=== PATIENT | female | born 1950 | race Hispanic/Latino ===

== ENCOUNTER 2017-10-29 17:15 | Inpatient (IN) | payer MEDICARE ==
[~2017-10-29] VITALS: Ht 152.4 cm; Wt 31.9 kg
[~2017-10-29 17:15] MED LIST: ACET500C50 PEG; ALBU0.63 IH; APIX2.5T PEG; BUDE0.252 IH; CALC0.253 PEG; FAMO20TA8 PEG; FOLI1TAB61 PEG; FURO-152 PEG; LEVE250T PEG; MIDO5TAB PEG; PHEN125O3 PEG; PRED10TA3 PEG; QUET25TA PEG
[2017-10-29 17:56] LABS: ABG BASE EXCESS 4.3 mmol/L (-2.0-3.0); ABG HCO3 32.7 mmol/L (21.0-28.0); ABG OXYGEN SATURATION 90.4 % (95.0-99.0); ABG PCO2 65 mmHg (32-45)
[2017-10-29 18:12] LABS: BASOPHILS % (AUTO) 0.9 % (0.0-5.0); EOSINOPHILS % (AUTO) 1.8 % (0.0-8.0); HEMATOCRIT 35.6 % (36-48); LYMPHOCYTES % (AUTO) 19.2 % (21.0-51.0); MEAN CORPUSCULAR HEMOGLOBIN 31.9 pg (27.0-33.0); MEAN CORPUSCULAR HGB CONC 33.5 g/dL (32.0-36.0); MEAN CORPUSCULAR VOLUME 95.3 fL (79-99); MONOCYTES % (AUTO) 9.7 % (3.0-13.0); NEUTROPHILS % (AUTO) 68.4 % (40.0-77.0); NUCLEATED RED BLOOD CELLS 0.1 % (0.0-0.19); PLATELET COUNT (AUTO) 340 K/uL (130-400); RED BLOOD CELL COUNT(AUTO) 3.74 MIL/uL (4.00-5.50); RED CELL DISTRIBUTION WIDTH 13.7 % (11.0-15.5); WHITE BLOOD COUNT (AUTO) 7.8 K/uL (4.8-10.8)
[2017-10-29 18:17] LABS: APPEARANCE,URINE Turbid (CLEAR); BILIRUBIN,URINE Negative (NEGATIVE); COLOR,URINE Yellow (YELLOW); GLUCOSE, URINE (UA) Negative (NEGATIVE); KETONES,URINE Negative (NEGATIVE); LEUKOCYTE ESTERASE ,URINE Moderate (NEGATIVE); NITRATE,URINE Negative (NEGATIVE); OCCULT BLOOD,URINE Negative (NEGATIVE); PROTEIN,URINE Trace (NEGATIVE); UROBILINOGEN,URINE 0.2 mg/dL (0.2-1.0)
[2017-10-29 18:30] LABS: CREATININE 0.4 mg/dL (0.5-1.5); POTASSIUM 4.6 mmol/L (3.5-5.1)
[2017-10-29 18:32] LABS: AMORPHOUS SEDIMENT,UR Moderate /LPF (None Seen); BACTERIA,URINE Few /HPF (None Seen); RBC,URINE None Seen /HPF (0-1); SQUAMOUS EPITHELIAL CELL,UR 0-2 /LPF (0-2)
[2017-10-29 18:44] LABS: ALBUMIN 3.3 g/dL (3.5-5.0); BILIRUBIN,TOTAL 0.2 mg/dL (0.2-1.0); CREATINE KINASE MB 0.9 ng/mL (0.5-3.6); TOTAL PROTEIN, SERUM 8.5 g/dL (6.0-8.3)
[2017-10-29 18:46] LABS: INR 0.94 (0.85-1.15); PARTIAL THROMBOPLASTIN TIME 25.8 SEC (26.3-35.5); PROTHROMBIN TIME 9.9 SEC (9.6-11.6)
[2017-10-29 18:48] LABS: B-TYPE NATRIURETIC PEPTIDE 133 pg/mL (0-100)
[2017-10-29] MEDS ORDERED: LEVOFLOXACIN 500 MG/D5W 100 ML 100 ML ONE (19:45)
[2017-10-29] MEDS ORDERED: CEFTRIAXONE SODIUM 1 GM ONE (19:45)
[2017-10-29] MEDS ORDERED: OSELTAMIVIR PHOSPHATE 75 MG PO ONE ×2 (20:30)
[2017-10-29 22:18] VITALS: BP 114/75
[2017-10-29 23:00] VITALS: BP 81/55
[2017-10-29] MEDS ORDERED: ACETAMINOPHEN ELIXIR 650 MG/20.3 ML UDCUP GT PRN (23:00)
[2017-10-29] MEDS ORDERED: ONDANSETRON HCL 4 MG/2 ML VIAL IV PRN (23:30)
[2017-10-29] MEDS ORDERED: PERMETHRIN CREAM 5% 60GM TUBE TP SCH (23:30)
[2017-10-29] MEDS ORDERED: NOREPINEPHRINE 4MG/NS 250ML 250 ML IV SCH (23:30)
[2017-10-29] MEDS ORDERED: ACETAMINOPHEN-CODEINE 300/30MG TAB GT PRN (23:30)
[2017-10-29] MEDS ORDERED: NOREPINEPHRINE BITARTRATE 1 MG/1 ML ML IV ONE (23:35)
[2017-10-29] MEDS ORDERED: SODIUM CHLORIDE 0.9% 250 ML IV ONE (23:36)
[2017-10-30] VITALS (15 sets, daily range): BP systolic 86–127; BP diastolic 34–81
[2017-10-30 04:10] LABS: EOSINOPHILS % (AUTO) 4.7 % (0.0-8.0); HEMATOCRIT 34.1 % (36-48); LYMPHOCYTES % (AUTO) 22.7 % (21.0-51.0); MEAN CORPUSCULAR HEMOGLOBIN 32.9 pg (27.0-33.0); MEAN CORPUSCULAR HGB CONC 34.2 g/dL (32.0-36.0); MEAN CORPUSCULAR VOLUME 96.3 fL (79-99); MONOCYTES % (AUTO) 15.1 % (3.0-13.0); NEUTROPHILS % (AUTO) 56.5 % (40.0-77.0); NUCLEATED RED BLOOD CELLS 0.1 % (0.0-0.19); PLATELET COUNT (AUTO) 275 K/uL (130-400); RED BLOOD CELL COUNT(AUTO) 3.54 MIL/uL (4.00-5.50); RED CELL DISTRIBUTION WIDTH 13.8 % (11.0-15.5); WHITE BLOOD COUNT (AUTO) 3.5 K/uL (4.8-10.8)
[2017-10-30 04:18] LABS: CREATININE 0.5 mg/dL (0.5-1.5); POTASSIUM 3.8 mmol/L (3.5-5.1)
[2017-10-30 05:53] LABS: ABG BASE EXCESS 2.6 mmol/L (-2.0-3.0); ABG HCO3 30.2 mmol/L (21.0-28.0); ABG OXYGEN SATURATION 90.5 % (95.0-99.0); ABG PCO2 59 mmHg (32-45)
[2017-10-30] MEDS ORDERED: PERMETHRIN CREAM 5% 60GM TUBE TP SCH (08:00)
[2017-10-30] MEDS ORDERED: PANTOPRAZOLE 40 MG/VIAL IVP SCH (09:00)
[2017-10-30] MEDS: LEVOFLOXACIN 500 MG/D5W 100 ML 100 ML IV SCH (09:08)
[2017-10-30] MEDS: CEFTRIAXONE SODIUM 1 GM IVP SCH (09:08)
[2017-10-30] MEDS: ENOXAPARIN SODIUM 30 MG/0.3 ML SQ SCH (09:09)
[2017-10-30] MEDS: OSELTAMIVIR PHOSPHATE 75 MG CAP GT SCH ×2 (09:09→22:26)
[2017-10-30] MEDS ORDERED: FAMOTIDINE/PF 20 MG/2 ML VIAL IV SCH (10:15)
[2017-10-31 03:39] VITALS: BP 112/77
[2017-10-31 07:44] VITALS: BP 87/65
[2017-10-31] MEDS: LEVOFLOXACIN 500 MG/D5W 100 ML 100 ML IV SCH (09:50)
[2017-10-31] MEDS: OSELTAMIVIR PHOSPHATE 75 MG CAP GT SCH ×2 (09:50→20:17)
[2017-10-31] MEDS: FAMOTIDINE/PF 20 MG/2 ML VIAL IV SCH (09:50)
[2017-10-31] MEDS: ENOXAPARIN SODIUM 30 MG/0.3 ML SQ SCH (09:51)
[2017-10-31] MEDS: CEFTRIAXONE SODIUM 1 GM IVP SCH (09:51)
[2017-10-31 11:05] VITALS: BP 108/55
[2017-10-31 16:30] VITALS: BP 111/67
[2017-10-31 19:45] VITALS: BP 95/57
[2017-10-31 23:40] VITALS: BP 112/70
[2017-11-01 03:43] VITALS: BP 122/74
[2017-11-01 07:40] VITALS: BP 101/55
[2017-11-01] MEDS: LEVOFLOXACIN 500 MG/D5W 100 ML 100 ML IV SCH (08:37)
[2017-11-01] MEDS: OSELTAMIVIR PHOSPHATE 75 MG CAP GT SCH ×2 (08:37→20:12)
[2017-11-01] MEDS: FAMOTIDINE/PF 20 MG/2 ML VIAL IV SCH (08:40)
[2017-11-01] MEDS: CEFTRIAXONE SODIUM 1 GM IVP SCH (08:40)
[2017-11-01] MEDS: ENOXAPARIN SODIUM 30 MG/0.3 ML SQ SCH (08:41)
[2017-11-01 11:40] VITALS: BP 96/67
[2017-11-01] MEDS: ALPRAZOLAM 0.25 MG TABLET PO PRN ×2 (16:35→22:53)
[2017-11-01 16:45] VITALS: BP 119/78
[2017-11-01 19:31] VITALS: BP 99/59
[2017-11-01 23:46] VITALS: BP 117/74
[2017-11-02 03:56] VITALS: BP 115/72
[2017-11-02 07:28] VITALS: BP 106/95
[2017-11-02] MEDS: CEFTRIAXONE SODIUM 1 GM IVP SCH (09:14)
[2017-11-02] MEDS: FAMOTIDINE/PF 20 MG/2 ML VIAL IV SCH (09:14)
[2017-11-02] MEDS: OSELTAMIVIR PHOSPHATE 75 MG CAP GT SCH (09:14)
[2017-11-02] MEDS: ENOXAPARIN SODIUM 30 MG/0.3 ML SQ SCH (09:14)
[2017-11-02] MEDS: LEVOFLOXACIN 500 MG/D5W 100 ML 100 ML IV SCH (10:00)
== END 2017-11-02 11:00 | disposition home health service (06) | DRG 208 ==
LOC: EEVIPCON 17:15 → EDH 17:15 → EDHIP 19:39 → 2CH 20:49 → 2AH 10-30 16:15
PROVIDERS: ADMIT Family Medicine; ATTEND Family Medicine
PROC: 5A1945Z Respiratory Ventilation, 24-96 Consecutive Hours (ICD-10-PCS; principal; 2017-10-29)
PROC: 0BH17EZ Insertion of Endotracheal Airway into Trachea, Via Natural or Artificial Opening (ICD-10-PCS; 2017-10-29)
DX: J96.21 Acute and chronic respiratory failure with hypoxia (principal); E43 Unspecified severe protein-calorie malnutrition; J10.00 Influenza due to other identified influenza virus with unspecified type of pneumonia; Z99.11 Dependence on respirator [ventilator] status; I48.2 Chronic atrial fibrillation; I95.9 Hypotension, unspecified; J84.10 Pulmonary fibrosis, unspecified; B86 Scabies; M06.9 Rheumatoid arthritis, unspecified; J44.0 Chronic obstructive pulmonary disease with (acute) lower respiratory infection; Z68.1 Body mass index [BMI] 19.9 or less, adult; J10.1 Influenza due to other identified influenza virus with other respiratory manifestations; L89.90 Pressure ulcer of unspecified site, unspecified stage; J96.22 Acute and chronic respiratory failure with hypercapnia; R62.7 Adult failure to thrive; Y95 Nosocomial condition; Z93.0 Tracheostomy status; F41.9 Anxiety disorder, unspecified; Z28.21 Immunization not carried out because of patient refusal
CPT/HCPCS: 36415; 36600; 71045; 80048; 80053; 81001; 82550; 82553; 82803; 83605; 83880; 84484; 85025; 85610; 85730; 87040; 87088; 87804; 93005; 99291; A4218; C9113; J0696; J1650; J1956; J2405; J3490; J7030

== ENCOUNTER → 2017-11-17 | Outpatient (CLI) | payer MEDICARE | END | disposition home or self-care (01) | LOC: RAH 10:39 | PROVIDERS: ATTEND Internal Medicine Pulmonary Disease | DX: J47.9 Bronchiectasis, uncomplicated (principal) | CPT/HCPCS: G8996; G8997; G8998; 74230; 92611 ==

== ENCOUNTER 2019-02-09 17:41 | Emergency (ER) | payer MEDICARE | END 2019-02-09 20:43 | disposition home or self-care (01) | LOC: EDH 17:41 | DX: F43.22 Adjustment disorder with anxiety (principal); R06.02 Shortness of breath; J44.9 Chronic obstructive pulmonary disease, unspecified; Z88.5 Allergy status to narcotic agent; Z88.6 Allergy status to analgesic agent; Z93.1 Gastrostomy status | CPT/HCPCS: 71045; 93005; 94002 ==